=== PATIENT | male | born 1960 | race Caucasian/White ===

== ENCOUNTER 2020-02-29 01:55 | Emergency (ER) | payer SELFPAY ==
[2020-02-29] MEDS ORDERED: HALOPERIDOL LACTATE INJ 5 MG/1 ML VIAL IM ONE (02:36)
[2020-02-29] MEDS ORDERED: LORAZEPAM INJ 2 MG/1 ML VIAL IM ONE ×2 (02:36→03:34)
[2020-02-29] MEDS ORDERED: KETAMINE HCL INJ 500 MG/10 ML VIAL IM ONE (03:34)
[2020-02-29 06:17] LABS: ABSOLUTE LYMPHOCYTES (AUTO) 3.1 10^3/uL (0.5-4.7); ABSOLUTE MONOCYTES (AUTO) 0.5 10^3/uL (0.1-1.4); ABSOLUTE NEUT (AUTO) 5.5 10^3/uL (1.7-8.2); BASOPHILS % (AUTO) 0.3 % (0-2); EOSINOPHILS % (AUTO) 0.1 % (0-6); HEMATOCRIT 44.6 % (37.9-51.0); HEMOGLOBIN 15.4 g/dL (13.5-17.0); LYMPHOCYTES % (AUTO) 33.7 % (13-45); MEAN CORPUSCULAR HEMOGLOBIN 29.8 pg (27.0-33.4); MEAN CORPUSCULAR HGB CONC 34.5 g/dL (32.0-36.0); MEAN CORPUSCULAR VOLUME 87 fl (80-97); MONOCYTES % (AUTO) 5.8 % (3-13); PLATELET COUNT 351 10^3/uL (150-450); RED BLOOD COUNT 5.16 10^6/uL (4.35-5.55); RED CELL DISTRIBUTION WIDTH 13.4 % (11.5-14.0); SEGMENTED NEUTROPHILS % (AUTO) 60.1 % (42-78); TOTAL CELLS COUNTED % (AUTO) 100 %; WHITE BLOOD COUNT 9.2 10^3/uL (4.0-10.5)
[2020-02-29 06:23] LABS: ACETAMINOPHEN < 10 ug/mL (10-30); ALBUMIN 4.6 g/dL (3.5-5.0); ALCOHOL 190 mg/dL (NONE DETECTED); ALKALINE PHOSPHATASE 90 U/L (38-126); ANION GAP 15 (5-19); ASPARTATE AMINO TRANSFERASE 27 U/L (17-59); BILIRUBIN,DIRECT 0.3 mg/dL (0.0-0.4); BILIRUBIN,TOTAL 0.6 mg/dL (0.2-1.3); BLOOD UREA NITROGEN 16 mg/dL (7-20); CALCIUM 9.5 mg/dL (8.4-10.2); CARBON DIOXIDE 19 mmol/L (22-30); CHLORIDE 106 mmol/L (98-107); GLUCOSE 118 mg/dL (75-110); POTASSIUM 4.6 mmol/L (3.6-5.0); SALICYLATE < 1.0 mg/dL (2.0-20.0); TOTAL PROTEIN 7.7 g/dL (6.3-8.2)
--- NOTE | 2020-02-29 06:34 | ER Document Report ---
ED General <JEFFERYCARLA Magui - Last Filed: 02/29/20 06:41> <GORDONHILARYTERENCE - Last Filed: 02/29/20 07:45> <CIARAN MOULTON - Last Filed: 02/29/20 14:01> <ANTONIO JOVEL - Last Filed: 02/29/20 14:15> - General Chief Complaint: Suicidal Ideation Stated Complaint: PSYCH Primary Care Provider: [facility] [Outside] - Follow up as needed [facility] [Outside] - Follow up as needed [facility] [Outside] - Follow up as needed Notes: 59-year-old male with psych history but unable to tell me what diagnoses are, chronic right knee pain presents with suicidal ideation. As per EMS [facility] because patient was having suicidal ideation. When I asked him if he was having suicidal thoughts he says "yeah, yeah I want to kill myself" but then unable to elaborate. Repeatedly goes back to perseveration on paranoid thoughts including that multiple members of staff I am not trying to help him, [facility] not [facility], and that staff member here wanted him to urinate in front of him "like a queer." Patient extremely combative, tangential, paranoid, and delusional. Patient repeatedly threatening staff and then trying to leave, but unable to get sufficient history from him to determine whether he would be able to be safely discharged. History limited by psychiatric symptoms. (CARLA JEFFERY) - Related Data Allergies/Adverse Reactions: No Known Allergies Allergy (Unverified 02/29/20 02:53) Past Medical History - General Information source: Patient, Emergency Med Personnel - Social History Smoking Status: Never Smoker Chew tobacco use (# tins/day): No Patient has homicidal ideation: No <CARLA JEFFERY - Last Filed: 02/29/20 06:41> - Social History Family History: Reviewed & Not Pertinent <ANTONIO JOVEL - Last Filed: 02/29/20 14:15> Review of Systems - Review of Systems -: Yes ROS unobtainable due to patient's medical condition - Will not answer, perseveration <CARLA JEFFERY - Last Filed: 02/29/20 06:41> Physical Exam <CARLA JEFFERY - Last Filed: 02/29/20 06:41> - Vital signs Vitals: Temp Pulse Resp BP Pulse Ox 98.2 F 88 20 130/71 H 99 02/29/20 03:19 02/29/20 03:19 02/29/20 03:19 02/29/20 03:19 02/29/20 03:19 - Notes Notes: PHYSICAL EXAMINATION: GENERAL: Well-appearing, well-nourished, agitated patient HEAD: Atraumatic, normocephalic. EYES: Pupils equal round and appropriate constriction, sclera anicteric, conjunctiva are normal. ENT: nares patent, moist mucous membranes. NECK: Normal range of motion, supple without lymphadenopathy LUNGS: Normal respiratory rate and effort, speaking in full sentences HEART: Regular rate, no JVD, no lower extremity edema ABDOMEN: Soft, nontender, no guarding, no masses, no CVAT EXTREMITIES: Normal range of motion, patient refused physical exam NEUROLOGICAL: Awake, alert, moves all extremities spontaneously. PSYCH: Normal level of alertness, does not appear to be responding to internal stimuli, psychomotor agitation, tangential, perseverating, delusions regarding medical care and intentions of staff SKIN: Warm, Dry, normal turgor (JEFFERYCARLA Kilgore) Course - Laboratory Result Diagrams: 02/29/20 03:43 02/29/20 03:43 <JEFFERYCARLA Magui - Last Filed: 02/29/20 06:41> - Laboratory Result Diagrams: 02/29/20 03:43 02/29/20 03:43 <TERENCE FONTANEZ - Last Filed: 02/29/20 07:45> - Laboratory Result Diagrams: 02/29/20 03:43 02/29/20 03:43 <CIARAN MOULTON - Last Filed: 02/29/20 14:01> - Laboratory Result Diagrams: 02/29/20 03:43 02/29/20 03:43 <ANTONIO JOVEL - Last Filed: 02/29/20 14:15> - Re-evaluation Re-evalutation: 02/29/20 06:42 Patient with some psych history NOS presents with SI agitation delusions and perseveration. Does not appear to be intoxicated, normal level of alertness, normal vitals, patient refused physical exam which is reasonable as patient able to deny all symptoms except for pain in his right knee which which he says he has had for several months and he had steroid injection in but refuses exam of and denies any change in. Patient sedated for his and staff protection and to prevent elopement from ED and patient with suicidal ideation. Patient tolerated sedation well has been sleeping comfortably without any respiratory depression. Turned over to [facility] pending UA results and psych eval and reassessment. (CARLA JEFFERY) 02/29/20 07:46 Urinalysis unremarkable, urine drug screen unremarkable, patient is medically cleared pending mental health evaluation. (TERENCE FONTANEZ) - Vital Signs Vital signs: Temp Pulse Resp BP Pulse Ox 97.8 F 84 15 131/86 H 97 02/29/20 09:00 02/29/20 09:00 02/29/20 09:00 02/29/20 09:00 02/29/20 09:00 - Laboratory Laboratory results interpreted by me: 02/29/20 03:43 Carbon Dioxide 19 L Glucose 118 H Salicylates < 1.0 L Acetaminophen < 10 L - EKG Interpretation by Me Additional EKG results interpreted by me: 02/29/20 06:42 Sinus rhythm, no significant ST elevations or depressions, no significant T wave inversions, normal QTC (CARLA JEFFERY) Discharge <CARLA JEFFERY - Last Filed: 02/29/20 06:41> <TERENCE FONTANEZ - Last Filed: 02/29/20 07:45> <CIARAN MOULTON - Last Filed: 02/29/20 14:01> <ANTONIO JOVEL - Last Filed: 02/29/20 14:15> - Discharge Clinical Impression: Alcohol use disorder, Suicidal ideation Alcohol intoxication Qualifiers: Complication of substance-induced condition: with delirium Qualified Code(s): F10.921 - Alcohol use, unspecified with intoxication delirium Condition: Stable Disposition: HOME, SELF-CARE Additional Instructions: You have been evaluated by both medical and behavioral health teams for alcohol intoxication, alcohol use disorder, and suicidal ideation. You have been deemed appropriate for discharge. While in the emergency department you received the following services/or had access to: Medical screening and assessment, nursing services, dietary services, pharmacological services, one-on-one counseling and/or psychotherapy, environmental services, and continuous observation by a patient safety inspector. You gave verbal consent for voluntary linkage to [facility] and they have accepted you for screening. You are to go directly to [facility] upon discharge from the emergency department. CHRONIC ALCOHOLISM and ALCOHOL ABUSE: Your evaluation reveals evidence of chronic alcoholism, an addiction to alcohol. The tendency to alcoholism may be inherited. Chronic use of alcohol weakens muscles, causes fatty deposits in the liver, damages the stomach, makes you more prone to infections, and can cause defects in unborn children. In the long run, brain atrophy and cirrhosis of the liver result. You are also at greater risk for certain types of cancer, such as cancer of the mouth, throat, stomach, and liver. Counselling services are available to help you. In-hospital treatment programs often help. Support groups such as Alcoholics Anonymous can be very useful in beating this addiction. Your physician can make a referral for you. As alcoholics often are prone to other addictions, you should discuss your use of any other medications with the doctor. ALCOHOL WITHDRAWAL: (concerns for if you abruptly stop) Your symptoms are caused by alcohol withdrawal. After a period of frequent drinking, the brain and body are changed by the alcohol. When you quit or reduce your drinking, the nervous system becomes unstable. Withdrawal symptoms can s tart a few hours after your last drink, but sometimes don't begin until a couple of days later. Symptoms can include shakiness, sweating, insomnia, nausea, vomiting, fearfulness, hallucinations, and seizures. In addition to the acute effects of alcohol withdrawal, we often have to deal with the medical effects of alcoholism. These problems often include dehydration, stomach irritation, intestinal bleeding, low blood sugar, liver disease, and pancreas inflammation. Treatment for alcohol withdrawal includes mild sedatives, vitamins, and fluids. You need to be with someone who can help if symptoms become severe. Many patients can withdraw at home. Admission to the hospital or a detox facility may be necessary if withdrawal symptoms are severe and uncontrollable. Abstaining from alcohol is the only effective long-term treatment. If you start drinking again, you will not be able to control yourself after the first drink. Treatment programs are available. In addition, many alcoholics benefit from Alcoholics Anonymous or other support groups available through your counselor or judaism tear down man. [employer] and [facility] are support groups for friends and family members of an alcoholic. Go to the emergency room if you develop persistent vomiting, severe abdominal pain, fever, shortness of breath, hallucinations, uncontrollable tremors, or seizures. DEPRESSION: Your evaluation reveals that you have mental depression. While symptoms may be vague, they often include disturbance of sleep, fatigue, loss of appetite, and general loss of interest in life. While depression may be a side effect of drugs, or a reaction to a major change in your life, many cases have no known cause. If depression is acute, and related to a major loss in your life, you can expect it to clear completely with time. If you have been depressed a long time, are prone to repeated bouts of depression or low mood, or have been thinking of suicide, get help. Depression can be treated with anti-depressant medication and counselling. Long-term depression will often take a few weeks to clear, even with appropriate medication. Follow-up care is important. SUICIDAL IDEATION: (you made comments while intoxicated but denied current suicidal ideation) Suicidal ideation is a common medical term for thoughts about suicide, which may be as detailed as a formulated plan, without the suicidal act itself. Although most people who undergo suicidal ideation do not commit suicide, some go on to make suicide attempts. The range of suicidal ideation varies greatly from fleeting to detailed planning, role playing, and unsuccessful attempts. While thoughts about suicide are common, most people do not carry out serious actions to commit suicide. Based upon your evaluation and discussion with you, we do not believe you are currently at risk to act upon your thoughts of suicide. You have agreed to return to the Emergency Department, at any time, if you feel inclined to act upon your suicidal thoughts. FOLLOW-UP CARE: You gave verbal consent to make voluntary linkage to [facility] for alcohol detoxification. They have accepted you fro screening and have a bed reservation for you. You are to go directly to [facility] upon discharge from the emergency department. If you experience worsening or a significant change in your symptoms notify your physician immediately, utilize mobile crisis or return to the Emergency Department at any time for re- evaluation. Referrals: [facility] [Outside] - Follow up as needed [facility] [Outside] - Follow up as needed [facility] [Outside] - Follow up as needed
[2020-02-29 06:44] LABS: APPEARANCE,URINE CLEAR; BILIRUBIN,URINE NEGATIVE (NEGATIVE); COLOR,URINE STRAW; GLUCOSE, URINE NEGATIVE (NEGATIVE); KETONES,URINE NEGATIVE (NEGATIVE); LEUKOCYTE ESTERASE,URINE NEGATIVE (NEGATIVE); NITRITE,URINE NEGATIVE (NEGATIVE); PROTEIN,URINE NEGATIVE (NEGATIVE); URINE SPECIFIC GRAVITY 1.004; UROBILINOGEN,URINE NEGATIVE mg/dL (<2.0)
[2020-02-29 06:50] LABS: URINE AMPHETAMINES SCREEN NEGATIVE; URINE BARBITURATES SCREEN NEGATIVE; URINE BENZODIAZEPINES SCREEN NEGATIVE; URINE COCAINE SCREEN NEGATIVE; URINE MARIJUANA (THC) SCREEN NEGATIVE; URINE METHADONE SCREEN NEGATIVE; URINE PHENCYCLIDINE SCREEN NEGATIVE
--- NOTE | 2020-02-29 07:47 | EKG REPORT ---
SEVERITY:- NORMAL ECG - SINUS RHYTHM : Confirmed by: Maurice Yeung MD 29-Feb-2020 07:46:23
--- NOTE | 2020-02-29 13:37 | RADIOLOGY REPORT (SQ) ---
EXAM DESCRIPTION: WRIST RIGHT 3 VIEWS IMAGES COMPLETED DATE/TIME: 02/29/2020 1:29 pm REASON FOR STUDY: injury COMPARISON: None. NUMBER OF VIEWS: Three views. TECHNIQUE: AP, lateral, and oblique radiographic images acquired of the right wrist. LIMITATIONS: None. FINDINGS: MINERALIZATION: Normal. BONES: No acute fracture or dislocation. No worrisome bone lesions. Normal alignment. SOFT TISSUES: No soft tissue swelling. No foreign body. OTHER: No other significant finding. IMPRESSION: NEGATIVE STUDY OF THE RIGHT WRIST. NO RADIOGRAPHIC EVIDENCE OF ACUTE INJURY. TECHNICAL DOCUMENTATION: JOB ID: [id number] 2010 [employer]- All Rights Reserved Reading location - IP/workstation name: [email or web address]
--- NOTE | 2020-02-29 14:14 | ER Document Report ---
Doctor's Note Notes: 02/29/20 14:14 Is alert is not acting out at this time. Has been evaluated by the psychiatric team. Patient has been accepted at [facility] and they have a bed for the patient he will be discharged to their facility for further evaluation and management
[2020-02-29 15:16] VITALS: BP 139/92
== END 2020-02-29 15:14 | disposition home or self-care (01) ==
LOC: ER 01:55
DX: R45.851 Suicidal ideations (principal); F10.921 Alcohol use, unspecified with intoxication delirium; M25.561 Pain in right knee; G89.29 Other chronic pain
CPT/HCPCS: 93005; 99285; 96372; 99152; 36415; 80307 ×4; 85025; 80053; 81001; 73110; 93010; J1630; J2060